=== PATIENT | male | born 2000 | race Caucasian/White ===

== ENCOUNTER 2022-11-18 15:19 | Emergency (ER) | payer BC, OTHER ==
[2022-11-18 15:37] VITALS: BP 161/81; PULSE 89; RESP 16; TEMP 98; BMI 36.0
== END 2022-11-18 16:37 | disposition home or self-care (01) ==
LOC: FER 15:19
DX: S80.11XA Contusion of right lower leg, initial encounter (principal); W22.8XXA Striking against or struck by other objects, initial encounter; V29.498A Other motorcycle driver injured in collision with other motor vehicles in traffic accident, initial encounter
CPT/HCPCS: 73590-TC-LT-FY; 99283-25